=== PATIENT | female | born 1965 | race American Indian/Alaskan Native ===

== ENCOUNTER 2017-04-25 17:27 | Emergency (ER) | payer SELFPAY ==
[2017-04-25 18:06] LABS: Eosinophils % (Auto) 0.1 % (0.0-4.3); Hematocrit 37.4 % (30.3-42.9); Hemoglobin 12.8 gm/dl (10.1-14.3); Mean Corpuscular HGB Conc 34 % (30-34); Mean Corpuscular Hemoglobin 30 pg (28-32); Mean Corpuscular Volume 88 fl (79-97); Platelet Count 295 K/mm3 (140-440); Red Blood Count 4.25 M/mm3 (3.65-5.03); Red Cell Distribution Width 13.9 % (13.2-15.2); White Blood Count 12.9 K/mm3 (4.5-11.0)
[2017-04-25 18:09] LABS: Bacteria,Urine 1+ /HPF (Negative); Bilirubin,Urine SM (Negative); Blood,Urine SM (Negative); Ketones,Urine TR mg/dL (Negative); Leukocyte Esterase,Urine NEG (Negative); Mucus,Urine 3+ /HPF; Nitrite,Urine NEG (Negative)
[2017-04-25 18:24] LABS: Alanine Aminotransferase 16 units/L (7-56); Albumin 3.9 g/dL (3.9-5); Albumin/Globulin Ratio 0.8 %; Alkaline Phosphatase 61 units/L (35-129); Anion Gap 19 mmol/L; BUN/Creatinine Ratio 14; Blood Urea Nitrogen 11 mg/dL (7-17); Calcium 8.9 mg/dL (8.4-10.2); Carbon Dioxide 25 mmol/L (22-30); Chloride 101.4 mmol/L (98-107); Glucose 110 mg/dL (65-100); Lipase 35 units/L (13-60); Potassium 3.3 mmol/L (3.6-5.0); Sodium 142 mmol/L (137-145); Total Protein 8.8 g/dL (6.3-8.2)
[2017-04-26 03:19] VITALS: BP 106/59
[2017-04-26] MEDS ORDERED: K-DUR PO ONE ×2 (04:45→06:54)
--- NOTE | 2017-04-26 05:08 | Emergency Department Report ---
ED Abdominal Pain HPI - General Chief Complaint: Abdominal Pain Stated Complaint: RIGHT BREAST LUMP, ABDOMINAL PAIN Time Seen by Provider: 04/26/17 03:32 Source: patient Mode of arrival: Ambulatory Limitations: No Limitations - History of Present Illness Initial Comments: A 52-year-old female presents to ER with complaints of a problem of pain since yesterday and lump in her right breast 4 days. Abdominal pain is associated with nausea and vomiting, no fever, no diarrhea. She denies history of constipation, she was her bowels every day. Patient has no nipple discharge from her right breast. She discovered a lump in her right breasts 4 days ago. MD Complaint: abdominal pain -: Gradual, Last night Location: LUQ, RUQ, epigastric Radiation: none Migration to: no migration Severity: moderate Severity scale (0 -10): 8 Quality: stabbing, sharp Consistency: intermittent Improves With: nothing Worsens With: nothing Associated Symptoms: nausea, vomiting. denies: diarrhea, chills, constipation, dysuria, hematemesis, hematochezia, melena, hematuria, anorexia, syncope - Related Data Previous Rx's Medication Instructions Recorded Last Taken Type Dicyclomine [Bentyl] 20 mg PO QID #24 tablet 04/26/17 Unknown Rx Lactulose [Cephulac] 20 gm PO BID #600 ml 04/26/17 Unknown Rx Ondansetron [Zofran Odt] 4 mg PO Q8HR #21 tab.rapdis 04/26/17 Unknown Rx Allergies Allergy/AdvReac Type Severity Reaction Status Date / Time No Known Allergies Allergy Unverified 04/25/17 17:30 ED Review of Systems ROS: Stated complaint: RIGHT BREAST LUMP, ABDOMINAL PAIN Other details as noted in HPI Comment: All other systems reviewed and negative Constitutional: denies: chills, diaphoresis, fever, malaise, weakness Eyes: denies: as per HPI ENT: denies: ear pain, dental pain, hearing loss Respiratory: no symptoms reported. denies: cough, SOB at rest Cardiovascular: denies: chest pain, palpitations, dyspnea on exertion, edema Endocrine: no symptoms reported Gastrointestinal: abdominal pain, nausea, vomiting. denies: diarrhea, constipation, hematochezia Genitourinary: denies: urgency, dysuria, frequency, hematuria, discharge Musculoskeletal: denies: back pain, joint swelling, arthralgia, myalgia Skin: other (she has a lump in her right breast) Neurological: denies: headache, weakness, numbness, paresthesias, confusion ED Past Medical Hx - Past Medical History Previous Medical History?: No - Surgical History Additional Surgical History: C SECTION X3 - Social History Smoking Status: Never Smoker Substance Use Type: None - Medications Home Medications: Home Medications Medication Instructions Recorded Confirmed Last Taken Type Dicyclomine [Bentyl] 20 mg PO QID #24 tablet 04/26/17 Unknown Rx Lactulose [Cephulac] 20 gm PO BID #600 ml 04/26/17 Unknown Rx Ondansetron [Zofran Odt] 4 mg PO Q8HR #21 tab.rapdis 04/26/17 Unknown Rx ED Physical Exam - General Limitations: No Limitations General appearance: alert, in no apparent distress - Head Head exam: Present: atraumatic, normocephalic - Eye Eye exam: Present: normal appearance, PERRL, EOMI. Absent: scleral icterus Pupils: Present: normal accommodation - ENT ENT exam: Present: normal exam, normal orophraynx, mucous membranes moist - Neck Neck exam: Present: normal inspection, full ROM. Absent: tenderness, meningismus, lymphadenopathy - Respiratory Respiratory exam: Present: normal lung sounds bilaterally. Absent: respiratory distress, wheezes, chest wall tenderness, decreased breath sounds, prolonged expiratory - Cardiovascular Cardiovascular Exam: Present: regular rate, normal rhythm, normal heart sounds. Absent: bradycardia, tachycardia, systolic murmur, diastolic murmur - GI/Abdominal GI/Abdominal exam: Present: soft, distended, tenderness (upper abdominal quadrants), guarding (upper abdominal quadrants), hypoactive bowel sounds. Absent: rebound, rigid, normal bowel sounds, organomegaly, mass, bruit, pulsatile mass - Extremities Exam Extremities exam: Present: normal inspection, full ROM, normal capillary refill. Absent: tenderness, pedal edema, joint swelling - Back Exam Back exam: Present: normal inspection, full ROM. Absent: tenderness, CVA tenderness (L), muscle spasm, paraspinal tenderness - Neurological Exam Neurological exam: Present: alert, oriented X3, CN II-XII intact, motor sensory deficit - Other Other exam information: Nontender right breast lump, mobile nontender mass ED Course Vital Signs 04/25/17 04/26/17 04/26/17 17:31 00:17 03:19 Temperature 98.8 F 98.7 F Pulse Rate 72 98 H 82 Respiratory 20 18 17 Rate Blood Pressure 105/52 103/67 Blood Pressure 106/59 [Left] O2 Sat by Pulse 96 100 99 Oximetry ED Medical Decision Making - Lab Data Result diagrams: 04/25/17 17:50 04/25/17 17:50 Critical Care Time: No Critical care attestation.: If time is entered above; I have spent that time in minutes in the direct care of this critically ill patient, excluding procedure time. ED Disposition Clinical Impression: Lump of right breast, Impaction of colon Disposition: TO HOME OR SELFCARE Is pt being admited?: No Does the pt Need Aspirin: No Condition: Stable Instructions: Abdominal Pain (ED), Fecal Impaction (ED), Breast Mass (ED) Additional Instructions: Follow up with a surgeon for further evaluation with mammogram, of your right breast lump Prescriptions: Dicyclomine [Bentyl] 20 mg PO QID #24 tablet Lactulose [Cephulac] 20 gm PO BID #600 ml Ondansetron [Zofran Odt] 4 mg PO Q8HR #21 tab.rapdis Referrals: PRIMARY CARE, [Primary Care Provider] - 3-5 Days Time of Disposition: 06:43
[2017-04-26] MEDS ORDERED: BENTYL IM ONE (06:36)
[2017-04-26] MEDS ORDERED: TORADOL IM ONE (06:36)
--- NOTE | 2017-04-26 07:33 | XRay Report ---
ABDOMINAL SERIES: History: Upper abdominal pain. Erect chest film shows no acute or significant changes involving the heart or lung steen. There is no evidence of free air beneath the diaphragms. The gas pattern within the abdomen is unremarkable. There is no evidence of bowel dilatation, significant air-fluid levels, or masses. Organ shadows are unremarkable. IMPRESSION: Abdominal series within normal limits.
== END 2017-04-26 07:10 | disposition home or self-care (01) ==
LOC: ED 17:27
DX: K56.49 Other impaction of intestine (principal); N63.0 Unspecified lump in unspecified breast
CPT/HCPCS: 36415; 74022; 80053; 81001; 83690; 83735; 84703; 85025; 96372; 99284; J0500; J1885